=== PATIENT | female | born 1970 | race Caucasian/White ===

== ENCOUNTER 2017-10-18 13:56 | Outpatient (CLI) | payer SELFPAY ==
[2013-12-21 21:12] VITALS: BP 138/77
[2017-10-18 14:21] LABS: BASOPHILS % 0.3 (0.0-1.5); EOSINOPHILS % 2.1 % (0.0-6.8); MEAN CORPUSCULAR HEMOGLOBIN 27.6 pg (28.0-34.0); MEAN CORPUSCULAR VOLUME 83.1 fl (80.0-100.0); MONOCYTES % 5.1 % (0.0-11.0); NEUTROPHILS # 2.8 # k/uL (1.4-7.7)
== END 2017-10-18 13:57 ==
LOC: LAB 13:56
PROVIDERS: ATTEND Physician Assistant
DX: N93.9 Abnormal uterine and vaginal bleeding, unspecified (principal)
CPT/HCPCS: 36415; 85025

== ENCOUNTER 2017-10-31 08:39 | Outpatient (CLI) | payer SELFPAY ==
[2013-12-21 21:12] VITALS: BP 138/77
[2017-10-31 09:17] LABS: BASOPHILS % 0.5 (0.0-1.5); EOSINOPHILS % 2.3 % (0.0-6.8); MEAN CORPUSCULAR HEMOGLOBIN 27.1 pg (28.0-34.0); MEAN CORPUSCULAR VOLUME 83.3 fl (80.0-100.0); NEUTROPHILS # 2.6 # k/uL (1.4-7.7)
[2017-10-31 09:58] LABS: eGFR (African) > 60; eGFR (Non-African) > 60
== END 2017-10-31 10:09 ==
LOC: LAB 08:39
PROVIDERS: ATTEND General Practice
DX: Z01.812 Encounter for preprocedural laboratory examination (principal)
CPT/HCPCS: 36415; 80053; 85025; 85610; 85730

== ENCOUNTER 2017-10-31 08:45 | Outpatient (CLI) | payer SELFPAY ==
[2013-12-21 21:12] VITALS: BP 138/77
== END 2017-10-31 10:09 ==
LOC: OUT 08:45
PROVIDERS: ATTEND General Practice
DX: Z01.818 Encounter for other preprocedural examination (principal)
CPT/HCPCS: 99213